=== PATIENT | male | born 1995 | race Hispanic/Latino ===

== ENCOUNTER 2021-04-10 08:01 | Emergency (ER) | payer SELFPAY ==
[2021-04-10] MEDS ORDERED: Acetaminophen 500 MG TAB ONE (09:44)
[2021-04-10] MEDS ORDERED: Boostrix 0.5 ML (Tdap) VIAL ONE (09:44)
== END 2021-04-10 10:49 | disposition home or self-care (01) ==
LOC: ERS 08:01
DX: S61.532A Puncture wound without foreign body of left wrist, initial encounter (principal); W26.0XXA Contact with knife, initial encounter
CPT/HCPCS: 29125; 90471; 90715